=== PATIENT | male | born 1965 | race Two or more races ===

== ENCOUNTER 2018-11-15 19:50 | Inpatient (IN) | payer MEDICARE, OTHER ==
[~2018-11-15] VITALS: Ht 167.6 cm; Wt 79.8 kg
--- NOTE | 2018-11-15 20:03 | NUR ---
[id number] STREETS,FOUND BY BYSTANDERS ON THE GROUND. ADMITTS +ETOH. BS94. DENIES NECK PAIN.UNKNOWN KO. ABBRASION ON NOSE,FOREHEAD,BACK OF HEAD. PT UNABLE TO ANSWER QUESTIONS AT THIS TIME. NO ACUTE DISTRESS NOTED. READY FOR EVAL.
[2018-11-15] MEDS ORDERED: LORAZEPAM INJ 2 MG/ML VIAL ONE (20:32)
[2018-11-15] MEDS ORDERED: LORAZEPAM INJ 2 MG/ML VIAL IM ONE (21:00)
--- NOTE | 2018-11-15 21:06 | NUR ---
PT TAKEN TO CT VIA [facility]
--- NOTE | 2018-11-15 22:14 | NUR ---
PT ASLEEP IN [facility]. RESPONDS TO VERBAL STIMULI. VSS. WILL CONT TO MONITOR.
[2018-11-15] MEDS ORDERED: TDAP [DIPH/PERTUSSIS/TET] 0.5 ML VIAL IM ONE ×2 (22:30→22:36)
[2018-11-15] MEDS ORDERED: CEFTRIAXONE 1GM BAG (ER ONLY) 1 GM/50 ML PIGGYBACK IV ONE (22:30)
[2018-11-15] MEDS ORDERED: ONDANSETRON HCL/PF 4 MG/2 ML VIAL IVP ONE (22:30)
[2018-11-15] MEDS ORDERED: IV NS 0.9% 1,000 ML BAG IV ONE (22:30)
[2018-11-15] MEDS ORDERED: CEFTRIAXONE 1GM BAG (ER ONLY) 50 ML IV ONE ×2 (22:36→23:15)
[2018-11-15] MEDS ORDERED: ONDANSETRON HCL/PF 4 MG/2 ML VIAL ONE (22:36)
[2018-11-15 22:39] LABS: BASOPHILS # (AUTO) 0.1 /CMM (0.0-0.2); BASOPHILS % (AUTO) 1.1 % (0.0-2.0); EOSINOPHILS % (AUTO) 1.3 % (0.0-6.0); HEMATOCRIT 39 % (39-51); HEMOGLOBIN 13.1 g/dL (13.5-17.5); LYMPHOCYTES # (AUTO) 1.7 /CMM (0.8-4.8); LYMPHOCYTES % (AUTO) 23.9 % (20.0-44.0); MEAN CORPUSCULAR HGB CONC 33 g/dl (31.0-36.0); MEAN CORPUSCULAR VOLUME 100 fL (80-96); MONOCYTES # (AUTO) 0.6 /CMM (0.1-1.30); MONOCYTES % (AUTO) 7.6 % (2.0-12.0); NEUTROPHILS # (AUTO) 4.8 /CMM (1.8-8.9); NEUTROPHILS % (AUTO) 66.1 % (43.0-81.0); PLATELET COUNT (AUTO) 281 /CMM (150-450); RED BLOOD CELL COUNT(AUTO) 3.93 MIL/uL (4.5-6.0); WHITE BLOOD COUNT (AUTO) 7.3 K/uL (4.3-11.0)
--- NOTE | 2018-11-15 23:15 | NUR ---
PT PULLED OUT IV IN AN ATTEMPT TO GO TO THE BATHROOM. FLUIDS SPILLED TO FLOOR. REORIENTED PT TO BED.
[2018-11-15 23:22] LABS: ALBUMIN 3.7 g/dL (3.4-5.0); BILIRUBIN,DIRECT 0.1 mg/dL (0.0-0.2); BILIRUBIN,TOTAL 0.3 mg/dL (0.2-1.0); CALCIUM, SERUM 9.2 mg/dL (8.5-10.1); CREATININE 0.8 mg/dL (0.6-1.3); TOTAL PROTEIN, SERUM 7.8 g/dL (6.4-8.2)
--- NOTE | 2018-11-16 00:20 | NUR ---
PT TO ICU VIA [facility] WITH RN AND EMT.
[2018-11-16 00:29] VITALS: BP 127/75
--- NOTE | 2018-11-16 00:51 | NUR ---
pt admitted from ER for small subarachnoid and subdural hemmorhage after fall. pt has fracture of occipital lobe. pt is awake alert, german speaking, says he feels great, no pain. pt is on room air, sinus rhythm, bp wnl 127/75. pt has 2 iv, R ac, L ac. will continue to monitor
[2018-11-16 01:00] VITALS: BP 136/80
[2018-11-16 01:10] LABS: CREATINE KINASE, TOTAL 107 U/L (39-308)
[2018-11-16] MEDS ORDERED: LORAZEPAM INJ 2 MG/ML VIAL IV PRN ×2 (01:30)
[2018-11-16] MEDS ORDERED: ONDANSETRON HCL/PF 4 MG/2 ML VIAL IVP PRN (01:30)
[2018-11-16] MEDS ORDERED: MORPHINE SULFATE INJ 2 MG/ML DISP.SYRIN IV PRN (01:30)
[2018-11-16] MEDS ORDERED: ACETAMINOPHEN 325 MG TABLET PO PRN (01:30)
[2018-11-16 02:00] VITALS: BP 97/61
[2018-11-16 03:00] VITALS: BP 94/62
[2018-11-16 04:00] VITALS: BP 101/59
[2018-11-16 04:47] LABS: BASOPHILS # (AUTO) 0.1 /CMM (0.0-0.2); BASOPHILS % (AUTO) 0.9 % (0.0-2.0); EOSINOPHILS % (AUTO) 1.4 % (0.0-6.0); HEMATOCRIT 37 % (39-51); HEMOGLOBIN 12.4 g/dL (13.5-17.5); LYMPHOCYTES # (AUTO) 1.8 /CMM (0.8-4.8); LYMPHOCYTES % (AUTO) 24.5 % (20.0-44.0); MEAN CORPUSCULAR HGB CONC 34 g/dl (31.0-36.0); MEAN CORPUSCULAR VOLUME 99 fL (80-96); MONOCYTES # (AUTO) 0.7 /CMM (0.1-1.30); MONOCYTES % (AUTO) 9.3 % (2.0-12.0); NEUTROPHILS # (AUTO) 4.6 /CMM (1.8-8.9); NEUTROPHILS % (AUTO) 63.9 % (43.0-81.0); PLATELET COUNT (AUTO) 269 /CMM (150-450); RED BLOOD CELL COUNT(AUTO) 3.73 MIL/uL (4.5-6.0); WHITE BLOOD COUNT (AUTO) 7.3 K/uL (4.3-11.0)
[2018-11-16 05:00] VITALS: BP 117/82
[2018-11-16 05:12] LABS: CARBON DIOXIDE 21 mmol/L (21-32); CHLORIDE 104 mmol/L (98-107); POTASSIUM 3.8 mmol/L (3.5-5.1); SODIUM SERUM 138 mmol/L (136-145)
[2018-11-16 05:13] LABS: ALANINE AMINOTRANSFERASE 166 U/L (12-78); ALBUMIN 3.4 g/dL (3.4-5.0); ALKALINE PHOSPHATASE 64 U/L (46-116); ASPARTATE AMINOTRANSFERASE 118 U/L (15-37); BILIRUBIN,TOTAL 0.2 mg/dL (0.2-1.0); CALCIUM, SERUM 8.4 mg/dL (8.5-10.1); CREATININE 0.9 mg/dL (0.6-1.3); GLUCOSE 110 mg/dL (74-106); PHOSPHORUS 4.2 mg/dL (2.5-4.9); TOTAL PROTEIN, SERUM 7.2 g/dL (6.4-8.2); UREA NITROGEN, BLOOD 11 mg/dL (7-18)
--- NOTE | 2018-11-16 05:26 | NUR ---
THE PATIENT SAYS THAT HE IS LEAVING NO MATTER WHAT, I EDUCATED HIM THAT HE SHOULD STAY FOR THE DOCTOR TO ASSESS HIM AND THAT HE MAY POSSIBLY OR BE DEBILITATED, HE SAID THAT HE IS STILL LEAVING AND THAT I CAN'T STOP HIM
--- NOTE | 2018-11-16 05:29 | NUR ---
PTS 2 IVS WERE REMOVED, CANNULA INTACT, NO BLEEDING. ALL BELONGINGS RETURNED TO PT, PT SIGNED BELONGINGS LIST.
--- NOTE | 2018-11-16 05:30 | NUR ---
PT IS AWAKE ALERT ORIENTED X 4, KNOWS PERSON, PLACE, TIME, AND SITUATION, HE SAYS HE NEEDS TO NAVAL DESIGNER HIS CHILD AND HE IS NOT WILLING TO STAY UNTIL THE MORNING. CONCRETE FORM SETTER AND FINISHER FAUSTINO WALKER NOTIFIED, HE TOLD ME THAT WE CANT KEEP THIS PT AGAINST HIS WILL. DR DIRK CONTEH NOTIFIED THAT PT IS LEAVING AMA. PT WAS INFORMED THAT MAY POTENTIALLY OR BE DEBILITATED, HE IS AWARE AND STILL WANTS TO LEAVE. PT JUST LEFT AGAINST MEDICAL ADVICE (AMA) Addendum: 11/16/18 at 0549 by BINH PERRY RN PT SIGNED AMA FORM, IT IS IN PTS CHART
[2018-11-16 05:32] LABS: MAGNESIUM 1.1 mg/dL (1.8-2.4)
[2018-11-16 06:24] LABS: CHOLESTEROL 169 mg/dL (<200); HDL CHOLESTEROL 42 mg/dL (40-60); LDL 90 mg/dL (0-99); THYROID STIMULATING HORMONE 1.205 uIU/mL (0.358-3.74); TRIGLYCERIDES 279 mg/dL (30-150)
[2018-11-16] MEDS ORDERED: PANTOPRAZOLE 40 MG TABLET.DR PO SCH (07:30)
[2018-11-16] MEDS ORDERED: MULTIVITAMINS,THERAGRAN 1 UDTAB TABLET PO SCH (09:00)
[2018-11-16] MEDS ORDERED: THIAMINE HCL 100 MG TABLET PO SCH (09:00)
[2018-11-16] MEDS ORDERED: FOLIC ACID 1 MG TABLET PO SCH (09:00)
== END 2018-11-16 05:30 | disposition left against medical advice (07) | DRG 87 ==
LOC: ER 20:04 → ICU 23:45
PROVIDERS: ADMIT Internal Medicine; ATTEND Internal Medicine
DX: S06.5X0A Traumatic subdural hemorrhage without loss of consciousness, initial encounter (principal); W19.XXXA Unspecified fall, initial encounter; S02.119A Unspecified fracture of occiput, initial encounter for closed fracture; F10.129 Alcohol abuse with intoxication, unspecified; S06.6X0A Traumatic subarachnoid hemorrhage without loss of consciousness, initial encounter; Y90.8 Blood alcohol level of 240 mg/100 ml or more; D53.9 Nutritional anemia, unspecified; E66.9 Obesity, unspecified; I10 Essential (primary) hypertension; Z68.28 Body mass index [BMI] 28.0-28.9, adult; Y93.89 Activity, other specified; Y92.89 Other specified places as the place of occurrence of the external cause; M19.90 Unspecified osteoarthritis, unspecified site; M25.512 Pain in left shoulder; K70.10 Alcoholic hepatitis without ascites
CPT/HCPCS: 36415; 70450-TC; 70486-TC; 71045-TC; 72125-TC; 73030-TC; 80048-TC; 80053-TC; 80061-TC; 80076-TC; 82550-TC; 83735-TC; 84100-TC; 84443-TC; 84484-TC; 85025-TC; 85730-TC; 87081-TC; 90715; G0378; G0480; J0696; J2060; J2405; J7030

== ENCOUNTER 2020-01-04 07:13 | Inpatient (IN) | payer MEDICARE, OTHER ==
[~2020-01-04] VITALS: Ht 165.1 cm; Wt 70.8 kg
--- NOTE | 2020-01-04 07:20 | NUR ---
[id number] FROM STREETS FOR WITNESSED SEIZURE. ETOH SMELL. BG 156 COUNTY DIRECTOR. PATIENT AOX3, VERBALLY RESPONSIVE, BREATHING EVEN AND UNLABORED, NO SOB NOTED, NEEDS ATTENDED, KEPT COMFORTABLE. CHANGED INTO A GOWN, ATTACHED TO THE WATCHGUARD.
[2020-01-04] MEDS ORDERED: IV NS 0.9% 1,000 ML BAG IV ONE (07:30)
[2020-01-04 07:47] LABS: BASOPHILS # (AUTO) 0.2 /CMM (0.0-0.2); BASOPHILS % (AUTO) 2.3 % (0.0-2.0); EOSINOPHILS % (AUTO) 0.2 % (0.0-6.0); HEMATOCRIT 29 % (39-51); HEMOGLOBIN 9.2 g/dL (13.5-17.5); LYMPHOCYTES # (AUTO) 1.9 /CMM (0.8-4.8); LYMPHOCYTES % (AUTO) 19.8 % (20.0-44.0); MEAN CORPUSCULAR HGB CONC 32 g/dl (31.0-36.0); MEAN CORPUSCULAR VOLUME 81 fL (80-96); MONOCYTES # (AUTO) 0.8 /CMM (0.1-1.30); MONOCYTES % (AUTO) 8.6 % (2.0-12.0); NEUTROPHILS # (AUTO) 6.6 /CMM (1.8-8.9); NEUTROPHILS % (AUTO) 69.1 % (43.0-81.0); PLATELET COUNT (AUTO) 240 /CMM (150-450); RED BLOOD CELL COUNT(AUTO) 3.57 MIL/uL (4.5-6.0); WHITE BLOOD COUNT (AUTO) 9.5 K/uL (4.3-11.0)
[2020-01-04 07:53] LABS: CALCIUM, SERUM 8.4 mg/dL (8.5-10.1); POTASSIUM 3.5 mmol/L (3.5-5.1)
[2020-01-04 07:59] LABS: ALBUMIN 2.8 g/dL (3.4-5.0); BILIRUBIN,DIRECT 0.1 mg/dL (0.0-0.2); BILIRUBIN,TOTAL 0.5 mg/dL (0.2-1.0); TOTAL PROTEIN, SERUM 8.3 g/dL (6.4-8.2)
[2020-01-04] MEDS ORDERED: LORAZEPAM INJ 2 MG/ML VIAL ONE ×2 (08:20→08:40)
--- NOTE | 2020-01-04 08:20 | NUR ---
PATIENT HAD A WITNESSED "TONIC CLONIC" SEIZURE APPROX 30 SECONDS. SEIZURE PRECAUTION OBSERVED. APPLIED OXYGEN.
[2020-01-04] MEDS ORDERED: LORAZEPAM INJ 2 MG/ML VIAL IV ONE ×2 (08:30→09:00)
--- NOTE | 2020-01-04 08:59 | NUR ---
REPORT GIVEN TO CORY ROBIN FOR SADIE.
--- NOTE | 2020-01-04 09:00 | NUR ---
CARSON SLATER DNP AT BEDSIDE FOR EVAL.
[2020-01-04] MEDS ORDERED: Z GUARD REMEDY 2 OZ OINT TP PRN (09:30)
[2020-01-04] MEDS ORDERED: MAG HYDROX/AL HYDROX/SIMETH 30 ML UDC PO PRN (09:30)
[2020-01-04] MEDS ORDERED: LORAZEPAM INJ 2 MG/ML VIAL IV PRN (09:30)
[2020-01-04] MEDS ORDERED: ONDANSETRON HCL/PF 4 MG/2 ML VIAL IVP PRN (09:30)
[2020-01-04] MEDS ORDERED: MAGNESIUM HYDROXIDE 30 ML UDC PO PRN (09:30)
--- NOTE | 2020-01-04 09:37 | NUR ---
PATIENT TRANSFERRED TO ROOM 322-2 VIA ACLS PROTOCOL. NO DISTRESS NOTED. ENDORSED TO CORY ROBIN.
--- NOTE | 2020-01-04 09:45 | NUR ---
RECEIVED PT FROM ER. ARRIVED AT 0935 VIA [facility] TRANSPORT.
[2020-01-04] MEDS ORDERED: Thiamine 100 MG in IV D5W 50 ML IV SCH (10:00)
[2020-01-04] MEDS: PANTOPRAZOLE 40 MG VIAL IV SCH (10:11)
[2020-01-04] MEDS: IV D5/ 0.9% NACL 1,000 ML IV PRN ×2 (10:11→22:21)
--- NOTE | 2020-01-04 10:15 | NUR ---
PHYSICIAN ANESTHESIOLOGISTASSISTANT ATHLETIC TRAINER NOTES RECEIVED PT FROM ED DEPT VIA [employer]. PT A/OX2 WITH EPISODES OF CONFUSION. PT TOLERATING RA WITH NO ACUTE RESPIRATORY DISTRESS NOTED. PT HOOKED TO TELEMONITORING ST 113, PT DENIES ANY CHEST PAIN. PT DENIES ANY PAIN OR DISCOMFORT THE TIME OF ADMISSION, BUT CONCERNED ON HOW LONG WILL HE BE HERE AND WANTED TO BE DISCHARGE TODAY WELL. RN ORIENTED PT, EXPLAINED HIS PLAN OF CARE AT BEDSIDE. SKIN ASSESSMENT DONE, PICTURES TAKEN AND FILED IN THE CHART. PIV TO RAC G20, FLUSHED WITH NS, INTACT AND OPERATIONAL; STARTED IVF D5 NS AT 100ML/HR, INFUSING WELL. PT KEPT COMFORTABLE IN BED. CALL LIGHT KEPT WITHIN REACH. PT'S BED IN LOWEST, LOCKED POSITION WITH SR X3 WILL CONTINUE PLAN OF CARE.
--- NOTE | 2020-01-04 10:50 | NUR ---
LEAD TELLER NOTES PT WASN'T ABLE TO PROVIDE MOST OF ADMISSION HISTORY D/T MENTAL STATUS AT THIS TIME. WILL CONTINUE PLAN OF CARE.
[2020-01-04] MEDS ORDERED: LEVETIRACETAM (500MG) 1,000 MG in IV NS 0.9% 100 ML IV ONE (11:00)
--- NOTE | 2020-01-04 13:50 | NUR ---
COPIER REPAIR TECHNICIAN NOTES PT TELEMONITORING NOW READS SR95. WILL CONTINUE TO MONITOR.
--- NOTE | 2020-01-04 15:15 | NUR ---
MIDDLE SCHOOL LIBRARIAN NOTES RN ABLE TO TALK TO THE DAUGHTER OF PT/ CAROLYN . MADE AWARE OF PT'S SITUATION AND PLAN OF CARE. RN SPOEK TO FRANKY/AMADEO AND INFORMED ABOUT THE SITUATION WELL. WILL CONTINUE PLAN OF CARE.
[2020-01-04 16:00] VITALS: BP 131/97
--- NOTE | 2020-01-04 17:10 | NUR ---
STRIPPER AND PRINTER NOTES PT HAVING EEG AT BEDSIDE. TECH TO FORWARD RESULT TO NEURO/IDOKO. WILL ENDORSE TO INCOMING NIGHT NURSE FOR SADIE.
--- NOTE | 2020-01-04 18:44 | NUR ---
WOOD MACHINE CARVER CLOSING NOTES PT REMAINS IN BED, A/OX2 WITH EPISODES OF CONFUSION. PT TOLERATING RA, WITH NO ACUTE RESPIRATORY DISTRESS NOTED. ON TELEMONITORING SR/ST 104, PT DENIES ANY CHEST PAIN. IVF D5NS AT 100ML/HR TO RAC G20, FLUSHED WITH NS, INTACT AND INFUSING WELL. PT KEPT COMFORTABLE IN BED. ALL NEEDS AND CARE ATTENDED. CALL LIGHT KEPT WITHIN REACH. PT'S BED IN LOWEST, LOCKED POSITION WITH SR X3 WILL ENDORSE TO INCOMING NIGHT NURSE FOR SADIE.
--- NOTE | 2020-01-04 19:15 | NUR ---
DRAG OUT WORKER OPENING NOTES: RECEIVED PATIENT IN BED, AWAKE A/O X3. NO SOB NOTED. NO COMPLAIN OF PAIN. CALL LIGHT WITHIN REACH. BED ALARM ON. BED IN LOWEST AND LOCKED POSITION. SIDERAILS PADDED FOR SAFETY. URINAL AT THE BEDSIDE. REMIND PATIENT TO CALL WHEN OOB, VERBALIZED UNDERSTANDING.
[2020-01-04 19:49] VITALS: BP 141/80
[2020-01-04 20:00] VITALS: BP 141/80
[2020-01-04] MEDS: LEVETIRACETAM (250 MG) 250 MG TABLET PO SCH (21:04)
[2020-01-05] VITALS: BP 119/81
[2020-01-05 03:40] VITALS: BP 125/87
[2020-01-05 04:00] VITALS: BP 125/87
--- NOTE | 2020-01-05 05:57 | NUR ---
RADIOLOGIST CHIEF OF BREAST IMAGING CLOSING NOTES: PATIENT IN BED,AWAKE, A/O X2, CONFUSED AT TIMES. NO SEIZURE DURING SHIFT. NO SOB NOTED. NO COMPLAIN OF PAIN. CALL LIGHT WITHIN REACH. BED ALARM ON. BED IN LOWEST AND LOCKED POSITION. ONE SIDERAIL PAD ON THE LEFT LOWER SIDE REMOVED BY THE PATIENT. AFEBRILE. VITALS STABLE.
[2020-01-05 07:24] LABS: BASOPHILS % (AUTO) 0.3 % (0.0-2.0); EOSINOPHILS % (AUTO) 0.5 % (0.0-6.0); HEMATOCRIT 27 % (39-51); HEMOGLOBIN 8.7 g/dL (13.5-17.5); LYMPHOCYTES # (AUTO) 1.3 /CMM (0.8-4.8); LYMPHOCYTES % (AUTO) 17.7 % (20.0-44.0); MEAN CORPUSCULAR HGB CONC 32 g/dl (31.0-36.0); MEAN CORPUSCULAR VOLUME 80 fL (80-96); MONOCYTES # (AUTO) 0.8 /CMM (0.1-1.30); MONOCYTES % (AUTO) 11.7 % (2.0-12.0); NEUTROPHILS # (AUTO) 5.1 /CMM (1.8-8.9); NEUTROPHILS % (AUTO) 69.8 % (43.0-81.0); PLATELET COUNT (AUTO) 188 /CMM (150-450); RED BLOOD CELL COUNT(AUTO) 3.38 MIL/uL (4.5-6.0); WHITE BLOOD COUNT (AUTO) 7.2 K/uL (4.3-11.0)
--- NOTE | 2020-01-05 07:30 | NUR ---
MS RN OPENING NOTES RECEIVED PT IN BED, ASLEEP, EASILY AROUSED, A/OX2 WITH EPISODES OF CONFUSION. PT TOLERATING RA, WITH NO ACUTE RESPIRATORY DISTRESS NOTED. PT DENIES ANY PAIN OR DISCOMFORT AT THIS TIME. IVF D5NS @100ML/HR TO RAC G20, FLUID INFUSING WELL. PT KEPT COMFORTABLE IN BED. CALL LIGHT KEPT WITHIN REACH. PT'S BED IN LOWEST, LOCKED POSITION WITH SR X3.WILL CONTINUE PLAN OF CARE.
[2020-01-05 07:40] LABS: CALCIUM, SERUM 8.2 mg/dL (8.5-10.1); CREATININE 0.7 mg/dL (0.6-1.3); POTASSIUM 3.3 mmol/L (3.5-5.1)
[2020-01-05 08:00] VITALS: BP 132/77
[2020-01-05 08:11] LABS: MAGNESIUM 1.1 mg/dL (1.8-2.4)
[2020-01-05] MEDS: LEVETIRACETAM (250 MG) 250 MG TABLET PO SCH ×2 (08:31→21:02)
[2020-01-05] MEDS: PANTOPRAZOLE 40 MG VIAL IV SCH (08:31)
[2020-01-05] MEDS: THIAMINE HCL 100 MG TABLET PO SCH (09:51)
[2020-01-05] MEDS ORDERED: POTASSIUM CHLORIDE 20 MEQ TAB.PRT.SR PO SCH (10:00)
[2020-01-05] MEDS ORDERED: Magnesium 1GM/D5W 100ML PREMIX 100 ML IV SCH (10:30)
--- NOTE | 2020-01-05 10:30 | NUR ---
MS RN NOTES pt pulled ou piv to rac, and refused iv reinsertion. magnesium iv to be infuse, hospitalist/nn made aware. awaiting for orders.
[2020-01-05] MEDS ORDERED: MAGNESIUM OXIDE 400 MG TABLET PO SCH (11:00)
[2020-01-05] MEDS ORDERED: MAGNESIUM OXIDE 400 MG TABLET PO ONE ×2 (11:30→15:00)
[2020-01-05 16:00] VITALS: BP 133/89
--- NOTE | 2020-01-05 18:36 | NUR ---
MS RN CLOSING NOTES PT REMAINS IN BED, A/OX2 WITH EPISODES OF CONFUSION. PT TOLERATING RA, WITH NO ACUTE RESPIRATORY DISTRESS NOTED. PT DENIES ANY PAIN OR DISCOMFORT AT THIS TIME. NO PIV ACCESS, HOSPITALIST AWARE. PT KEPT COMFORTABLE IN BED. ALL NEEDS AND CARE ATTENDED. CALL LIGHT KEPT WITHIN REACH. PT'S BED IN LOWEST, LOCKED POSITION WITH SR X3.WILL ENDORSE TO INCOMING NIGHT NURSE FOR SADIE.
[2020-01-05 20:00] VITALS: BP 115/74
[2020-01-05] MEDS: ACETAMINOPHEN 325 MG TABLET PO PRN (21:02)
[2020-01-05] MEDS ORDERED: CEFTRIAXONE 1 G VIAL IV SCH (21:30)
--- NOTE | 2020-01-05 22:13 | NUR ---
MS/TELE/RN PATIENT AGREED FOR IV INSERTION. IV WAS INSERTED AT LEFT F/A G22.
[2020-01-05] MEDS ORDERED: CEFTRIAXONE 1 G VIAL ONE (22:23)
[2020-01-05] MEDS: CEFTRIAXONE 1 G in IV NS 0.9% 50 ML IV SCH (22:30)
[2020-01-05] MEDS: IV D5/ 0.9% NACL 1,000 ML IV PRN (22:38)
--- NOTE | 2020-01-05 22:59 | NUR ---
MS/TELE/RN AT 2100, TEMP OF 100.1 WAS NOTED, RECHECKED TEMP, 100.2, TYLENOL 650 MG PO WAS GIVEN, SENT MESSAGE TO DR. ARRIOLA, NEW ORDERS OF ROCEPHIN 1 GM IV Q DAY, BLOOD CULTURE X2, CXR IN AM, UA AND CULTURE WERE RECEIVED. ORDERS WERE CARRIED OUT.
[2020-01-06] MEDS: IV D5/ 0.9% NACL 1,000 ML IV PRN ×2 (02:34→17:32)
--- NOTE | 2020-01-06 06:38 | NUR ---
MS/TELE/RN PATIENT IS STILL SLEEPING, APPEAR COMFORTABLE, NO DISTRESS NOTED, CALL LIGHT IN REACH,. ALL NEEDS ATTENDED AT THIS TIME, WILL CONTINUE TO MONITOR.
[2020-01-06 07:04] LABS: CALCIUM, SERUM 7.5 mg/dL (8.5-10.1); CREATININE 0.8 mg/dL (0.6-1.3); POTASSIUM 3.4 mmol/L (3.5-5.1)
--- NOTE | 2020-01-06 07:25 | NUR ---
MS RN OPENING NOTES RECEIVED PT IN BED,AWAKE, A/OX2 WITH EPISODES OF CONFUSION. PT TOLERATING RA, WITH NO ACUTE RESPIRATORY DISTRESS NOTED. PT DENIES ANY PAIN OR DISCOMFORT AT THIS TIME. IVF D5NS @100ML/HR TO LFA G22, FLUID INFUSING WELL. PT KEPT COMFORTABLE IN BED. CALL LIGHT KEPT WITHIN REACH. PT'S BED IN LOWEST, LOCKED POSITION WITH SR X3.WILL CONTINUE PLAN OF CARE.
[2020-01-06 08:00] VITALS: BP 134/78
[2020-01-06] MEDS: THIAMINE HCL 100 MG TABLET PO SCH (08:20)
[2020-01-06] MEDS: PANTOPRAZOLE 40 MG VIAL IV SCH (08:20)
[2020-01-06] MEDS: LEVETIRACETAM (250 MG) 250 MG TABLET PO SCH ×2 (08:20→21:18)
[2020-01-06 09:40] LABS: C-REACTIVE PROTEIN 5.5 mg/dL (0.0-0.9)
--- NOTE | 2020-01-06 09:54 | NUR ---
MS RN NOTES CALLED LAB, PT'S KIT FOR [facility]AE TESTING NOT READY AT TIS TIME. PER TECH TO CALL IN 10MINUTES FOR JACQUARD PLATE MAKER. WILL CONTINUE TO MONITOR.
--- NOTE | 2020-01-06 10:30 | NUR ---
MS RN NOTES INFORMED HOSPITALIST/NN REGARDING CXR NEGATIVE RESULT AND CRP, FERRITIN AND LDH RESULTS. PER DNP/NN STILL TEST PATIENT FOR COVID. WILL CONTINUE TO MONITOR,
--- NOTE | 2020-01-06 11:13 | NUR ---
MS RN NOTES PT TESTED FOR COVID. SPECIMEN SENT TO THE LAB. WILL CONTINUE TO MONITOR.
[2020-01-06 11:33] LABS: APPEARANCE,URINE CLEAR (CLEAR); BILIRUBIN,URINE NEGATIVE (NEGATIVE); BLOOD, URINE TRACE-INTA Ery/uL (NEGATIVE); KETONES,URINE NEGATIVE (NEGATIVE); LEUKOCYTE ESTERASE ,URINE NEGATIVE (NEGATIVE); NITRITE, URINE NEGATIVE (NEGATIVE); PH,URINE 7.5 (5.0-8.0); PROTEIN,URINE TRACE mg/dl (NEGATIVE); UGLUCOSE NEGATIVE (NEGATIVE); UROBILINOGEN,URINE 0.2 EU/dL (0.2)
[2020-01-06 11:37] LABS: COLOR,URINE STRAW (YELLOW)
[2020-01-06] MEDS ORDERED: POTASSIUM CHLORIDE 20 MEQ TAB.PRT.SR PO SCH (12:00)
[2020-01-06 12:12] LABS: BACTERIA,URINE Rare /HPF (None Seen); SQUAMOUS EPITHELIAL CELL,UR Rare /HPF (None Seen); WBC,URINE 0-2 /HPF (0-3)
[2020-01-06 16:00] VITALS: BP 134/86
[2020-01-06] MEDS: ACETAMINOPHEN 325 MG TABLET PO PRN (17:30)
--- NOTE | 2020-01-06 18:49 | NUR ---
MS RN CLOSING NOTES PT REMAINS IN BED,AWAKE, A/OX2 WITH EPISODES OF CONFUSION. PT TOLERATING RA, WITH NO ACUTE RESPIRATORY DISTRESS NOTED. PT DENIES ANY PAIN OR DISCOMFORT AT THIS TIME. IVF D5NS @100ML/HR TO LFA G22, FLUID INFUSING WELL. PT KEPT COMFORTABLE IN BED. ALL NEEDS AND CARE ATTENDED. CALL LIGHT KEPT WITHIN REACH. PT'S BED IN LOWEST, LOCKED POSITION WITH SR X3. WILL ENDORSE TOINCOMING NIGHT NURSE FOR SADIE.
--- NOTE | 2020-01-06 19:35 | NUR ---
RN OPEN NOTES PATIENT IS WATCHING TV IN BED. BED IS IN LOWEST LOCKED POSITION WITH SIDE RAILS UP X2. NO SOB/ ACUTE RESPIRATORY DISTRESS NOTED. APPEARS COMFORTABLE/ NO COMPLAINTS OF PAIN AT THE MOMENT. CALL LIGHT IS WITHIN REACH. WILL CONTINUE TO MONITOR.
[2020-01-06 20:00] VITALS: BP 144/64
[2020-01-06] MEDS: CEFTRIAXONE 1 G in IV NS 0.9% 50 ML IV SCH (21:18)
[2020-01-06 21:27] VITALS: BP 144/64
[2020-01-07] MEDS: ACETAMINOPHEN 325 MG TABLET PO PRN ×2 (00:09→18:20)
[2020-01-07] MEDS: IV D5/ 0.9% NACL 1,000 ML IV PRN ×2 (05:21→18:22)
--- NOTE | 2020-01-07 06:42 | NUR ---
RN CLOSE NOTES PATIENT IS LAYING IN BED. A/O X3-4. NO SOB/ ACUTE RESPIRATORY DISTRESS NOTED. APPEARS COMFORTABLE/ NO COMPLAINTS OF PAIN AT THE MOMENT. INSERTED NEW IV R AC #22G. IV IS PATENT AND INTACT RUNNING D5NS @ 100MLS/HR. BED IS IN LOWEST LOCKED POSITION WITH SIDE RAILS UP X3. CALL LIGHT IS WITHIN REACH. WILL ENDORSE TO AM NURSE.
--- NOTE | 2020-01-07 07:10 | NUR ---
MS RN OPENING NOTES RECEIVED PT IN BED,AWAKE, A/OX2 AND CONFUSED SOMETIMES. NO S/S OF ANY ACUTE DISTRESS NOTED. RESPIRATION EVEN AND UNLABORED. PT SATURATING WELL ON RA. NO C/O PAIN AT THIS TIME IV ACCESS RAC G#22 INTACT, PATENT.AND INFUSING WELL.SAFETY MEASURES IN PLACE. BED IN LOWEST LOCKED POSITION CALL LIGHT WITHIN REACH. SIDE RAILS X3. HOB ELEVATED TO CHEYANNE FOWLERS POSITION. WILL CONTINUE TO MONITOR
[2020-01-07 07:34] LABS: BASOPHILS % (AUTO) 0.3 % (0.0-2.0); EOSINOPHILS % (AUTO) 1.1 % (0.0-6.0); HEMATOCRIT 26 % (39-51); HEMOGLOBIN 8.2 g/dL (13.5-17.5); LYMPHOCYTES # (AUTO) 1.8 /CMM (0.8-4.8); LYMPHOCYTES % (AUTO) 21.4 % (20.0-44.0); MEAN CORPUSCULAR HGB CONC 32 g/dl (31.0-36.0); MEAN CORPUSCULAR VOLUME 81 fL (80-96); MONOCYTES # (AUTO) 1.3 /CMM (0.1-1.30); MONOCYTES % (AUTO) 15.2 % (2.0-12.0); NEUTROPHILS # (AUTO) 5.3 /CMM (1.8-8.9); PLATELET COUNT (AUTO) 159 /CMM (150-450); WHITE BLOOD COUNT (AUTO) 8.6 K/uL (4.3-11.0)
[2020-01-07 07:43] LABS: CALCIUM, SERUM 7.8 mg/dL (8.5-10.1); POTASSIUM 3.7 mmol/L (3.5-5.1)
[2020-01-07 08:00] VITALS: BP 140/95
[2020-01-07] MEDS: THIAMINE HCL 100 MG TABLET PO SCH (08:40)
[2020-01-07] MEDS: PANTOPRAZOLE 40 MG VIAL IV SCH (08:40)
[2020-01-07] MEDS: LEVETIRACETAM (250 MG) 250 MG TABLET PO SCH ×2 (08:40→20:39)
[2020-01-07 09:15] LABS: EOSINOPHILS % (MANUAL) 1 % (0-4); LYMPHOCYTES % (MANUAL) 27 % (16-48); MONOCYTES % (MANUAL) 12 % (0-11.0); NEUTROPHILS % (MANUAL) 60 (42-76)
[2020-01-07] MEDS: DOXYCYCLINE HYCLATE (100 MG) 100 MG TABLET PO SCH ×2 (09:46→20:39)
--- NOTE | 2020-01-07 11:50 | NUR ---
PT'S MAGNESIUM LEVEL AT 1.0. CHARGE NURSE AND BRYON BYRD DNP MADE AWARE. PER BRENDA SLATER ADMINISTER 2GMS MAGNESIUM IVPB X1 OVER 2HOURS. ORDERS CARRIED OUT. WILL CONTINUE TO MONITOR
[2020-01-07] MEDS: Magnesium 1GM/D5W 100ML PREMIX 100 ML IV SCH ×2 (13:12→14:40)
[2020-01-07 16:00] VITALS: BP 114/73
--- NOTE | 2020-01-07 19:00 | NUR ---
Alert and orientated. enjoys conversation. verbalizes his needs. bed alarm on for safety. call light reviewed with the patient. noted cell phone is charging by the bedside
--- NOTE | 2020-01-07 19:08 | NUR ---
MS RN CLOSING NOTES PT IN BED,AWAKE, A/OX2 AND CONFUSED SOMETIMES. PT REMAINED STABLE THROUGHOUT SHIFT. NO S/S OF ANY ACUTE DISTRESS NOTED. RESPIRATION EVEN AND UNLABORED. NO C/O PAIN AT THIS TIME IV ACCESS RAC G#22 INTACT AND PATENT. PT KEPT CLEAN AND DRY. ALL CARE AND MEDICATIONS ADMINISTERED PER ORDER. ASPIRATION PRECAUTIONS AND SAFETY MEASURES IN PLACE. BED IN LOWEST LOCKED POSITION CALL LIGHT WITHIN REACH. SIDE RAILS X3. HOB ELEVATED TO SEMI FOWLERS POSITION. WILL ENDORSE TO COMMUNITY MIDWIFE NURSE FOR SADIE
[2020-01-07 20:11] VITALS: BP 118/75
[2020-01-07 20:21] VITALS: BP 118/75
[2020-01-07] MEDS: CEFTRIAXONE 1 G in IV NS 0.9% 50 ML IV SCH (21:50)
--- NOTE | 2020-01-08 05:54 | NUR ---
ENDING NORES: ALERT AND ORIENTATED X3. SLEPT THRU THE NIGHT. NO SEIZURE ACTIVITY NOTED. ASP PRECAUTIONS. GOOD ABOUT BEING REPOSITIONED. NO C/O THIS 12 HOURS.
[2020-01-08] MEDS: IV D5/ 0.9% NACL 1,000 ML IV PRN (06:44)
--- NOTE | 2020-01-08 07:40 | NUR ---
RN OPENING NOTE Patient is resting in bed, A/o x3, showing no signs of acute distress or SOB, stable on RA. Patient has no complaints of pain at this time. IV line in the RAC #22g is clean and intact running D5NS@ 100ml/hour. Bed is in lowest position, side rails x3 in upright position, call light is within reach, fall safety and aspiration precautions enforced. Will continue with plan of care.
[2020-01-08 08:00] VITALS: BP 131/88
[2020-01-08] MEDS: PANTOPRAZOLE 40 MG VIAL IV SCH (09:03)
[2020-01-08] MEDS: DOXYCYCLINE HYCLATE (100 MG) 100 MG TABLET PO SCH ×2 (09:03→21:00)
[2020-01-08] MEDS: THIAMINE HCL 100 MG TABLET PO SCH (09:03)
[2020-01-08] MEDS: LEVETIRACETAM (250 MG) 250 MG TABLET PO SCH ×2 (09:03→21:00)
[2020-01-08] MEDS ORDERED: Thiamine HCL PO (11:35)
[2020-01-08] MEDS ORDERED: LEVE250T2 PO (11:35)
[2020-01-08 13:49] LABS: BASOPHILS % (AUTO) 0.3 % (0.0-2.0); EOSINOPHILS % (AUTO) 0.8 % (0.0-6.0); HEMATOCRIT 27 % (39-51); LYMPHOCYTES # (AUTO) 1.6 /CMM (0.8-4.8); LYMPHOCYTES % (AUTO) 18.2 % (20.0-44.0); MEAN CORPUSCULAR HGB CONC 33 g/dl (31.0-36.0); MEAN CORPUSCULAR VOLUME 81 fL (80-96); MONOCYTES # (AUTO) 1.3 /CMM (0.1-1.30); MONOCYTES % (AUTO) 14.5 % (2.0-12.0); NEUTROPHILS # (AUTO) 5.8 /CMM (1.8-8.9); NEUTROPHILS % (AUTO) 66.2 % (43.0-81.0); PLATELET COUNT (AUTO) 188 /CMM (150-450); RED BLOOD CELL COUNT(AUTO) 3.39 MIL/uL (4.5-6.0); WHITE BLOOD COUNT (AUTO) 8.8 K/uL (4.3-11.0)
[2020-01-08 13:57] LABS: CALCIUM, SERUM 7.9 mg/dL (8.5-10.1); CREATININE 0.8 mg/dL (0.6-1.3); POTASSIUM 3.8 mmol/L (3.5-5.1)
[2020-01-08 14:01] LABS: MAGNESIUM 1.2 mg/dL (1.8-2.4)
[2020-01-08] MEDS ORDERED: MAGNESIUM OXIDE 400 MG TABLET PO ONE (14:30)
[2020-01-08] MEDS ORDERED: MAGN400T26 PO (14:50)
[2020-01-08 16:00] VITALS: BP 138/89
--- NOTE | 2020-01-08 16:19 | NUR ---
RN NOTE Spoke with patient's daughter and stated she is not able to waste picker the patient tonight due to working late in the night. Stated the earliest she can waste picker the patient is 10am tomorrow. Case management made aware and Susana Rolon NP made aware.
[2020-01-08 17:50] VITALS: BP 138/89
[2020-01-08] MEDS: ACETAMINOPHEN 325 MG TABLET PO PRN (17:50)
--- NOTE | 2020-01-08 18:00 | NUR ---
RN NOTE Patient has temp of 100.3, tylenol given and cooling measures initiated will continue to monitor.
--- NOTE | 2020-01-08 19:07 | NUR ---
RN CLOSING NOTE Patient is resting in bed, A/o x3, showing no signs of acute distress or SOB, stable on RA. Patient has no complaints of pain during my shift. IV line in the RAC #22g is clean and intact running D5NS@ 100ml/hour. Patient has DC order but daughter will meat pickler patient tomorrow at 10am. All patient needs met, all due medications given, patient kept clean and dry throughout shift. Bed is in lowest position, side rails x3 in upright position, call light is within reach, fall safety and aspiration precautions enforced. Will endorse to gas plant technician.
--- NOTE | 2020-01-08 19:56 | NUR ---
RN NOTES RECEIVED PATIENT ALERT ORIENTED X3-4, WATCHING TV IN BED. NO SIGNS OF ACUTE DISTRESS NOTED, SAFETY MEASURES IN PLACE, BED IS IN LOWEST LOCKED POSITION WITH SIDE RAILS UP X2. COMFORTABLE/ NO COMPLAINTS OF PAIN AT THE MOMENT. CALL LIGHT WITHIN EASY REACH. PERIPHERAL IV ACCESS INTACT AND PATENT. WILL CONTINUE TO MONITOR ACCORDINGLY.
[2020-01-08 20:09] VITALS: BP 120/90
[2020-01-08 20:18] VITALS: BP 120/70
[2020-01-08] MEDS ORDERED: predniSONE 20 MG TABLET ONE (21:14)
[2020-01-08] MEDS: CEFTRIAXONE 1 G in IV NS 0.9% 50 ML IV SCH (21:15)
[2020-01-09] MEDS: IV D5/ 0.9% NACL 1,000 ML IV PRN (05:26)
--- NOTE | 2020-01-09 06:40 | NUR ---
RN NOTES ALL NEEDS ATTENDED AND MET, ABLE TO REST AND SLEPT AT INTERVALS, DENIES ANY PAIN AT THIS TIME, NO SIGNS OF RESPIRATORY DISTRESS NOTED. SAFETY MEASURES IN PLACE. CALL LIGHT WITHIN EASY REACH. WILL ENDORSE TO AM NURSE FOR CONTINUITY OF CARE.
[2020-01-09 06:44] LABS: CALCIUM, SERUM 7.9 mg/dL (8.5-10.1); CREATININE 0.7 mg/dL (0.6-1.3); PHOSPHORUS 3.6 mg/dL (2.5-4.9); POTASSIUM 3.8 mmol/L (3.5-5.1)
[2020-01-09 06:46] LABS: THYROID STIMULATING HORMONE 3.186 uIU/mL (0.358-3.74); URIC ACID 4.5 mg/dL (2.6-7.2)
--- NOTE | 2020-01-09 07:18 | NUR ---
RN NOTES RECEIVED CRITICAL LAB RESULT OF MAGNESIUM 1.0 PER GREGOR BURROWS. INFORMED AM NURSE KASSI.
--- NOTE | 2020-01-09 07:42 | NUR ---
RN NOTE Susana Rolon NP informed of critical lab result Mag 1.0
[2020-01-09 08:00] VITALS: BP 136/89
--- NOTE | 2020-01-09 08:02 | NUR ---
RN NOTE Per Susana JAMES, to give 800mg Magnesium oxide PO one time. Addendum: 01/09/20 at 1009 by KASSI PEREIRA RN Per NETWORK ENGINEERING ADVISOR, no need for IV magnesium replacement. Patient will be sent home on magnesium replacement.
[2020-01-09] MEDS ORDERED: MAGNESIUM OXIDE 400 MG TABLET PO ONE (08:30)
[2020-01-09] MEDS: PANTOPRAZOLE 40 MG VIAL IV SCH (08:47)
[2020-01-09] MEDS: LEVETIRACETAM (250 MG) 250 MG TABLET PO SCH (08:47)
[2020-01-09] MEDS: THIAMINE HCL 100 MG TABLET PO SCH (08:48)
[2020-01-09] MEDS: DOXYCYCLINE HYCLATE (100 MG) 100 MG TABLET PO SCH (08:48)
[2020-01-09 10:00] VITALS: BP 127/88
--- NOTE | 2020-01-09 10:35 | NUR ---
WASHING MACHINE ASSEMBLER NOTE Patient is medically stable for discharge. Patient refused skin assessment and photos to be taken. DC instructions provided, prescription in DC folder, and patient verbalized understanding. All belongings are with patient. IV line removed, ID band removed. All patient needs met, all due medications given, patient kept clean and dry throughout shift. Patient brought down by wheelchair and picked up by daughter in private car.
== END 2020-01-09 10:39 | disposition home health service (06) | DRG 897 ==
LOC: ER 07:15 → TELE 09:03 → MED 01-05 11:42
PROVIDERS: ADMIT Nurse Practitioner Acute Care; ATTEND Registered Nurse
DX: F10.239 Alcohol dependence with withdrawal, unspecified (principal); J21.9 Acute bronchiolitis, unspecified; S22.42XA Multiple fractures of ribs, left side, initial encounter for closed fracture; E22.2 Syndrome of inappropriate secretion of antidiuretic hormone; G40.89 Other seizures; I16.0 Hypertensive urgency; Y90.0 Blood alcohol level of less than 20 mg/100 ml; D64.9 Anemia, unspecified; Z59.0 Homelessness; R74.0 Nonspecific elevation of levels of transaminase and lactic acid dehydrogenase [LDH]; G93.89 Other specified disorders of brain; D63.8 Anemia in other chronic diseases classified elsewhere; X58.XXXA Exposure to other specified factors, initial encounter; Y93.9 Activity, unspecified; Y92.89 Other specified places as the place of occurrence of the external cause; S20.212A Contusion of left front wall of thorax, initial encounter; G31.2 Degeneration of nervous system due to alcohol
CPT/HCPCS: 36415; 70450-TC; 71045-TC; 71250-TC; 80048-TC; 80076-TC; 80305; 81000-TC; 82728-TC; 83615-TC; 83735-TC; 84100-TC; 84443-TC; 84550-TC; 85025-TC; 86140-TC; 87040-TC; 87081-TC; 87086-TC; 92611-TC; 95819-TC; 97116-TC; 97530-TC; A4216; C9113; G0378; G0480; J0696; J1953; J2060; J3411; J3475; J3490; J7030; J7042; J7060; U0003-CS

== ENCOUNTER 2020-02-21 02:17 | Emergency (ER) | payer MEDICARE, OTHER ==
[~2020-02-21] VITALS: Ht 167.6 cm; Wt 70.8 kg
[~2020-02-21 02:17] MED LIST: LEVE250T2 PO; MAGN400T26 PO; Thiamine HCL PO
--- NOTE | 2020-02-21 02:21 | NUR ---
PT BIBRA C/O FOUND AT BUS STOP WITH NOSE BLEED. ETOH NOTED UPON ASSESSMENT, PT RESPONSIVE AND ANSWERING QUESTIONS.
--- NOTE | 2020-02-21 04:20 | NUR ---
PT RESTING COMFORTABLY. PROVIDED WITH BLANKET.
--- NOTE | 2020-02-21 06:41 | NUR ---
Patient discharged to home in stable condition. Written and verbal after care instructions given. Patient verbalizes understanding of instruction. Pt ambualated with steday gait. signed homeless discharge.
[2020-02-21 06:42] VITALS: BP 127/73
== END 2020-02-21 06:43 | disposition home or self-care (01) ==
LOC: ER 02:17
DX: F10.129 Alcohol abuse with intoxication, unspecified (principal); R51 Headache; Z60.2 Problems related to living alone; Z79.899 Other long term (current) drug therapy; Y90.9 Presence of alcohol in blood, level not specified
CPT/HCPCS: 70450-TC